=== PATIENT | female | born 1930 | race Caucasian/White ===

== ENCOUNTER → 2016-10-25 | Outpatient (CLI) | payer OTHER, MEDICARE ==
[~2016-10-25] MED LIST: AMLO-110 PO; ASPI1CHW26 PO; CALC750T PO; CETI10TA84 PO; CHOL1000 PO; CITA40TA4 PO; CRAN500C2 PO; CRG3125 PO; LACT10CA3 PO; LEVO75TA5 PO; MULT-188 PO; POLY335019 PO; TOPI25TA99 PO; ZOLP5TAB6 PO
--- NOTE | 2016-10-31 08:59 | MAMMOGRAPHY REPORT ---
BILATERAL DIGITAL SCREENING MAMMOGRAM WITH CAD: 10/25/2016 CLINICAL HISTORY: Routine screening. Patient has no complaints. TECHNIQUE: Bilateral CC and MLO views were obtained. Current study was also evaluated with a Compute r Aided Detection (CAD) system. COMPARISON: Comparison is made to exams dated: 10/25/2015 mammogram, 08/15/2013 mammogram, 08/14/2012 m ammogram, 07/25/2011 mammogram, and 07/21/2010 mammogram - [facility]. BREAST COMPOSITION: The tissue of both breasts is heterogeneously dense, which may obscure small mas ses. FINDINGS: There are moderate vascular calcifications and a few benign rim calcifications in the breas ts. No suspicious mass, architectural distortion or cluster of suspicious microcalcifications is see n. IMPRESSION: ACR BI-RADS CATEGORY 1: NEGATIVE There is no mammographic evidence of malignancy. A 1 year screening mammogram is recommended. The pa tient will receive written notification of the results. Approximately 10% of breast cancers are not detected with mammography. A negative mammographic report should not delay biopsy if a clinically suggestive mass is present. Maria Esther Paris M.D. ay/:10/25/2016 12:45:14 Service Observer Chief: Hayley CAMPBELL(R)(M), [facility] letter sent: Normal 1/2 BI-RADS Code: ACR BI-RADS Category 1: Negative
== END | disposition home or self-care (01) ==
LOC: C.MAMM 11:29
PROVIDERS: ATTEND Family Medicine
DX: Z12.31 Encounter for screening mammogram for malignant neoplasm of breast (principal)

== ENCOUNTER 2017-04-26 19:34 | Inpatient (IN) | payer OTHER, MEDICARE ==
[~2017-04-26] VITALS: Ht 154.9 cm; Wt 44.6 kg
[2017-04-26] MEDS ORDERED: SODIUM CHLORIDE 0.9% 250ML 250 ML IV STA (20:58)
[2017-04-26 21:19] LABS: BASO % 0.5 %; BASO ABS # 0.03 K/uL (0-0.2); EOS % 1.7 %; EOS ABS # 0.11 K/uL (0-0.5); HEMATOCRIT 39.8 % (37-47); IG# 0.02 K/uL (0.00-0.02); LYMPH % 34.1 %; LYMPH ABS # 2.21 K/uL (1.2-3.4); MEAN CELL VOLUME 88.8 fL (80-100); MEAN CORPUSCULAR HEMOGLOBIN 31.3 pg (25-34); MEAN CORPUSCULAR HGB CONC 35.2 g/dl (32-36); MEAN PLATELET VOLUME 8.9 fL (7.4-10.4); MONO % 8.2 %; MONO ABS # 0.53 K/uL (0.11-0.59); NEUT % 55.2 %; NEUT ABS # 3.58 K/uL (1.4-6.5); PLATELET COUNT 196 K/uL (130-400); RED CELL DISTRIBUTION WIDTH SD 42.3 fL (36.4-46.3); WHITE BLOOD COUNT 6.48 K/uL (4.8-10.8)
[2017-04-26 21:36] LABS: BLOOD UREA NITROGEN 26 mg/dl (7-18); CALCIUM 9.4 mg/dl (8.5-10.1); CARBON DIOXIDE 30 mmol/L (21-32); CREATININE 0.94 mg/dl (0.60-1.20); GLUCOSE 94 mg/dl (70-99); POTASSIUM 3.7 mmol/L (3.5-5.1); SODIUM 137 mmol/L (136-145)
--- NOTE | 2017-04-26 22:13 | DIAGNOSTIC IMAGING REPORT ---
HEAD WITHOUT CONTRAST (CT) CLINICAL HISTORY: 86 years-old Female presenting with [place] . TECHNIQUE: Multidetector CT imaging of the head was performed without the use of intravenous contrast. IV contrast: None. A dose lowering technique was used consistent with the principles of ALARA (as low as reasonably achievable). COMPARISON: 02/16/2014. CT DOSE (mGy.cm): The estimated cumulative dose is 537.48 mGy.cm. FINDINGS: Mirror Painter topogram: Unremarkable. Proportional ventricular and sulcal prominence, likely age-related parenchymal volume loss. Periventricular and subcortical white matter hypoattenuation, nonspecific but likely indicative of chronic small vessel ischemic change. No mass effect or midline shift. No hemorrhage or acute territorial infarct. No extra-axial fluid collection. Paranasal sinuses and mastoid air cells clear. Calvarium intact. IMPRESSION: 1. No acute intracranial abnormality. Electronically signed by: Morales Whittaker M.D. 04/26/2017 10:12 PM Dictated Date/Time: 04/26/2017 10:09 PM
[2017-04-26] MEDS ORDERED: ASPIRIN 81 MG CHEW PO STA (23:11)
[2017-04-26] MEDS ORDERED: NITROGLYCERIN 0.4 MG SL PER TAB CHARGE ONE (23:15)
[2017-04-26] MEDS ORDERED: NITROGLYCERIN 2% OINTMENT 30GM TUBE EXT ONE (23:15)
[2017-04-26] MEDS ORDERED: ASPIRIN 324 MG CHEW ONE (23:15)
[2017-04-26] MEDS ORDERED: ISS/10 PO (23:19)
[2017-04-26] MEDS ORDERED: VNTHFA/IN INH (23:19)
[2017-04-26] MEDS ORDERED: LACT10CA3 PO (23:19)
[2017-04-26] MEDS: NITROGLYCERIN 0.4 MG SL PER TAB CHARGE SL PRN ×3 (23:21→23:35)
[2017-04-26] MEDS ORDERED: NITROGLYCERIN 2% OINTMENT 30GM TUBE EXT SCH (23:30)
[2017-04-27] VITALS (9 sets, daily range): BP systolic 153–208; BP diastolic 65–77; PULSE 61–73; TEMP 36.5–36.8; O2SAT 94–96; Ht 154.9 cm; Wt 44.6 kg
[2017-04-27] MEDS ORDERED: LABETALOL HCL IV 5 MG/ML 20ML IV PRN
[2017-04-27 00:48] LABS: ALBUMIN 3.7 gm/dl (3.4-5.0); ALKALINE PHOSPHATASE 44 U/L (45-117); ALT/SGPT 19 U/L (12-78); AST/SGOT 17 U/L (15-37); LIPASE 270 U/L (73-393); TOTAL PROTEIN 7.2 gm/dl (6.4-8.2)
--- NOTE | 2017-04-27 00:56 | EMERGENCY ROOM VISIT NOTE ---
History Report prepared by Elvis: Kirti Johnson Under the Supervision of: Dr. Gaetano Jean-Baptiste D.O. First contact with patient: 20:45 Chief Complaint: HYPERTENSION Stated Complaint: HIGH BLOOD PRESSURE 210/93, LIGHT HEADED, NAUSEA History of Present Illness The patient is a 86 year old female who presents to the Emergency Room with complaints of episode of lightheadedness occurring this afternoon. She states this episode occurred when she got up from laying down. She denies room spinning. No other exacerbating or remitting factors. She states the lightheadedness did not subside quickly. During this episode, she took her blood pressure and it was 210/93. She reports intermittent head pressure beginning a week ago. The patient states her vision is "fuzzier" than her normal baseline. The patient has a history of hypertension and macular degeneration. Pt denies fevers, chest pain, shortness of breath, nausea, vomiting, diarrhea, pain with urination, and melena. Source of History: patient Onset: this afternoon Position: other (generalized) Quality: other (dizziness) Timing: other (episode) Associated Symptoms: + headache, No chest pain, No SOB Review of Systems See HPI for pertinent positives & negatives. A total of 10 systems reviewed and were otherwise negative. Past Medical & Surgical Medical Problems: (1) Carpal tunnel syndrome (2) Coronary artery disease (3) Depression (4) Hypercholesteremia (5) Hypertension (6) Hypertensive urgency (7) Hypothyroid (8) Macular degeneration Surgical Problems: (1) S/P hysterectomy Family History Patient reports no known family medical history. Social History Smoking Status: Never Smoker Alcohol Use: none Drug Use: none Marital Status: Housing Status: lives alone Occupation Status: retired Current/Historical Medications Scheduled Aspirin (Aspirin Adult Low Strengt), 81 MG PO HS Calcium W/ Vitamins D & K (Calcium + D + K), 750 MG PO DAILY Citalopram (Citalopram Hydrobromide), 40 MG PO QPM Cranberry (Vaccinium Macrocarp (Cranberry), 500 MG PO BID Isosorbide Dinitrate (Isordil), 5 MG PO BID Lactobacillus-Inulin (Culturelle), 1 CAP PO DAILY Levothyroxine Sodium (Levothyroxine Sodium), 75 MCG PO DAILY Multiple Vitamins W/ Minerals (Ocuvite), 1 TABS PO DAILY Scheduled PRN Albuterol Hfa (Ventolin Hfa), 2 PUFFS INH Q6H PRN for SOB/Wheezing Zolpidem Tartrate (Zolpidem Tartrate), 5 MG PO HS PRN for Sleep Allergies Coded Allergies: Escitalopram (Verified Allergy, Mild, 0, 04/26/17) Sulfa Drugs (Verified Allergy, Mild, 0, 04/26/17) Metoprolol (Verified Allergy, Unknown, Unknown, 04/26/17) Reported by PT/List Gabapentin (Verified Adverse Reaction, Severe, severe depression, 04/26/17) Desmopressin (Verified Adverse Reaction, Mild, 0, 04/26/17) HTN sinus pain Lisinopril (Verified Adverse Reaction, Mild, COUGH, 04/26/17) Physical Exam Vital Signs Date Time Temp Pulse Resp B/P (MAP) Pulse Ox O2 Delivery O2 Flow Rate FiO2 04/27/17 00:36 65 18 97 04/27/17 00:32 187/87 04/27/17 00:31 60 19 193/87 94 04/27/17 00:26 60 11 207/86 96 04/27/17 00:22 211/110 04/27/17 00:21 61 96 04/27/17 00:16 62 184/84 94 04/27/17 00:11 60 201/85 93 04/27/17 00:06 63 206/92 93 04/27/17 00:01 69 12 201/98 93 04/26/17 23:56 63 13 186/85 94 04/26/17 23:51 65 14 187/94 96 04/26/17 23:46 71 27 204/97 96 04/26/17 23:41 74 24 189/101 97 04/26/17 23:36 168/91 04/26/17 23:35 75 13 04/26/17 23:31 177/89 04/26/17 23:30 68 16 95 04/26/17 23:26 212/88 04/26/17 23:25 74 96 04/26/17 23:21 231/126 04/26/17 23:20 69 21 97 Room Air 04/26/17 23:17 218/106 04/26/17 23:15 60 18 98 04/26/17 23:15 63 22 228/103 98 Room Air 04/26/17 23:13 59 04/26/17 23:10 58 14 99 04/26/17 23:06 228/103 04/26/17 22:27 210/82 04/26/17 22:22 59 20 217/85 98 Room Air 04/26/17 19:56 36.6 84 18 176/68 95 Room Air Physical Exam GENERAL: Sitting up in bed, alert, well appearing, well nourished, no distress, non-toxic EYE EXAM: normal conjunctiva. PERRL and EOM's intact. OROPHARYNX: no exudate, no erythema, lips, buccal mucosa, and tongue normal and mucous membranes are moist NECK: supple, no nuchal rigidity, no adenopathy, non-tender LUNGS: Clear to auscultation. Normal chest wall mechanics HEART: no murmurs, S1 normal and S2 normal ABDOMEN: abdomen soft, non-tender, normo-active bowel sounds, no masses, no rebound or guarding. BACK: Back is symmetrical on inspection and there is no deformity, no midline tenderness, no CVA tenderness. SKIN: no rashes and no bruising UPPER EXTREMITIES: upper extremities are grossly normal. Rapid alternating movements of upper extremities intact. LOWER EXTREMITIES: No pitting edema. NEURO EXAM: Normal sensorium, cranial nerves II-XII intact, normal speech, no weakness of arms, no weakness of legs. No drift. Finger to nose intact. Gross sensation intact. Medical Decision & Procedures ER Provider Diagnostic Interpretation: Radiology results as stated below per my review and the radiologist's interpretation: HEAD WITHOUT CONTRAST (CT) FINDINGS: Care Aid topogram: Unremarkable. Proportional ventricular and sulcal prominence, likely age-related parenchymal volume loss. Periventricular and subcortical white matter hypoattenuation, nonspecific but likely indicative of chronic small vessel ischemic change. No mass effect or midline shift. No hemorrhage or acute territorial infarct. No extra-axial fluid collection. Paranasal sinuses and mastoid air cells clear. Calvarium intact. IMPRESSION: 1. No acute intracranial abnormality. Electronically signed by: Morales Whittaker M.D. Portable Chest One View interpreted by ky: Calcified aortic knob, no infiltrate , no pneumothorax, mild prominence of the right Hilar region. Laboratory Results 04/26/17 21:08 Red Blood Count 4.48, Mean Corpuscular Volume 88.8, Mean Corpuscular Hemoglobin 31.3, Mean Corpuscular Hemoglobin Concent 35.2, Mean Platelet Volume 8.9, Neutrophils (%) (Auto) 55.2, Lymphocytes (%) (Auto) 34.1, Monocytes (%) (Auto) 8.2, Eosinophils (%) (Auto) 1.7, Basophils (%) (Auto) 0.5, Neutrophils # (Auto) 3.58, Lymphocytes # (Auto) 2.21, Monocytes # (Auto) 0.53, Eosinophils # (Auto) 0.11, Basophils # (Auto) 0.03 04/26/17 21:08 Test 04/26/17 21:08 White Blood Count 6.48 K/uL (4.8-10.8) Red Blood Count 4.48 M/uL (4.2-5.4) Hemoglobin 14.0 g/dL (12.0-16.0) Hematocrit 39.8 % (37-47) Mean Corpuscular Volume 88.8 fL (80-100) Mean Corpuscular Hemoglobin 31.3 pg (25-34) Mean Corpuscular Hemoglobin Concent 35.2 g/dl (32-36) Platelet Count 196 K/uL (130-400) Mean Platelet Volume 8.9 fL (7.4-10.4) Neutrophils (%) (Auto) 55.2 % Lymphocytes (%) (Auto) 34.1 % Monocytes (%) (Auto) 8.2 % Eosinophils (%) (Auto) 1.7 % Basophils (%) (Auto) 0.5 % Neutrophils # (Auto) 3.58 K/uL (1.4-6.5) Lymphocytes # (Auto) 2.21 K/uL (1.2-3.4) Monocytes # (Auto) 0.53 K/uL (0.11-0.59) Eosinophils # (Auto) 0.11 K/uL (0-0.5) Basophils # (Auto) 0.03 K/uL (0-0.2) RDW Standard Deviation 42.3 fL (36.4-46.3) RDW Coefficient of Variation 13.0 % (11.5-14.5) Immature Granulocyte % (Auto) 0.3 % Immature Granulocyte # (Auto) 0.02 K/uL (0.00-0.02) Anion Gap 6.0 mmol/L (3-11) Est Creatinine Clear Calc Drug Dose 29.6 ml/min Estimated GFR () 63.7 Estimated GFR (Non- 54.9 BUN/Creatinine Ratio 27.5 (10-20) Calcium Level 9.4 mg/dl (8.5-10.1) Magnesium Level 2.4 mg/dl (1.8-2.4) Total Bilirubin 0.5 mg/dl (0.2-1) Direct Bilirubin 0.1 mg/dl (0-0.2) Aspartate Amino Transf (AST/SGOT) 17 U/L (15-37) Alanine Aminotransferase (ALT/SGPT) 19 U/L (12-78) Alkaline Phosphatase 44 U/L (45-117) Troponin I < 0.015 ng/ml (0-0.045) Total Protein 7.2 gm/dl (6.4-8.2) Albumin 3.7 gm/dl (3.4-5.0) Lipase 270 U/L (73-393) Thyroid Stimulating Hormone (TSH) 2.280 uIu/ml (0.300-4.500) Laboratory results per my review. Medications Administered Medications (Trade) Dose Ordered Sig/Jennifer Route Start Time Stop Time Status Last Admin Dose Admin Sodium Chloride 250 ml @ 999 mls/hr Q16M STAT IV 04/26/17 20:58 04/26/17 21:13 DC 04/26/17 20:58 999 MLS/HR Aspirin (Aspirin Chew) 324 mg NOW STAT PO 04/26/17 23:11 04/26/17 23:13 DC 04/26/17 23:19 324 MG Nitroglycerin (Nitrostat Tab) 0.4 mg Q5M PRN SL 04/26/17 23:15 05/26/17 23:14 04/26/17 23:35 0.4 MG Nitroglycerin (Nitroglycerin 2% Oint) 36 inch STK-MED ONCE EXT 04/26/17 23:15 04/26/17 23:16 DC 04/26/17 23:22 2 INCH ECG Per My Interpretation Indication: other (hypertensive) Rate (beats per minute): 62 Rhythm: sinus rhythm Findings: LBBB, left axis deviation, other (nonspecific ST changes in high lateral and lateral leads, slight elevation in septal and anterior leads) Comparison ECG Date: 02/16/14 Change: no significant change Change: Repeat EKG sinus bradycardia 58 bpm, left axis deviation, LBBB, slight increase in ST elevation in septal leads. Repeat EKG # 2: Sinus rhythm 63 bpm right axis deviation LBBB, no change from earlier ED Course ED COURSE: Vital signs were reviewed and showed hypertensive. The patients medical record was reviewed The above diagnostic studies were performed and reviewed. ED treatments and interventions as stated above. 2048: The patient was evaluated in room C1A. A complete history and physical examination was performed. 2057: Ordered Sodium Chloride 250 ml @ 999 mls/hr IV. 0: The patient is now having chest pain and shortness of breath. Repeat EKG was done. 1: Ordered Aspirin 324 mg PO. 2315: Ordered Nitroglycerin 1.2 mg .ROUTE, Aspirin 324 mg .ROUTE, Nitroglycerin 36 inch EXT, Nitroglycerin 0.4 mg SL. 2330: Ordered Nitroglycerin 2 inch EXT. 2342: I updated the patient on her test results and the treatment plan. Her blood pressure was 200. 2348: I reviewed the patient's case with Dr. Curry. He will evaluate the patient for further management. 0000: Ordered Labetalol HCl 10 mg IV. 0005: Upon reevaluation, the patient is resting comfortably.I discussed my findings with the patient and he understands and agrees with the treatment plan. Based on the patients age, coexisting illnesses, exam and lab findings the decision to treat as an inpatient was made. The patient remained stable while under my care.The patient will be evaluated for further management. Medical Decision Differential Diagnosis includes but is not limited to headache, tension headache , cluster headache, migraine, subarachnoid hemorrhage, meningitis, mass, central venous thrombus, concussion, trauma and epidural/subdural hemorrhage. Patient is an 86-year-old female who presents to ER for feeling lightheaded associated with a head pressure. She has no other complaints. Denied any chest pain or shortness breath. Vitals show a systolic blood pressure 170. EKG showed a left bundle and left axis which was fairly unchanged from previous. CT and blood work was obtained and was unremarkable. Initially troponin was not obtained as she was having no chest pain or shortness breath. Just prior to discharge her blood pressure spiked to 230. She started having chest pain at this time. EKG was obtained and did show slight increase in elevation in the septal leads but this did not meet Scarb[place] criteria. Repeat EKGs were unchanged. Her pain did resolve with nitroglycerin tabs and Nitropaste. Did add on a troponin. Patient was pain-free. Discussed with internal medicine. Patient will be admitted for hypertensive emergency. She was given several tabs nitroglycerin and put on Nitropaste. Systolic blood pressures remained in the 180s to 190s which are significant improvement from the 230s. Medication Reconcilliation Current Medication List: was personally reviewed by me Blood Pressure Screening Patient's blood pressure: Elevated blood pressure Blood pressure disposition: Referred to PCP (referred to the hospitalist) Consults Time Called: [phone] Consulting Physician: Dr. Curry Returned Call: [phone] I reviewed the patient's case with Dr. Curry. He will evaluate the patient for further management. Impression Primary Impression: Hypertensive emergency Additional Impression: Chest pain Scribe Attestation The scribe's documentation has been prepared under my direction and personally reviewed by me in its entirety. I confirm that the note above accurately reflects all work, treatment, procedures, and medical decision making performed by me. Departure Information Dispostion Being Evaluated By Hospitalist Referrals Estrada Johnson D.OAntonietta (PCP) Patient Instructions [facility] Problem Qualifiers Additional Impression: Chest pain Chest pain type: unspecified Qualified Codes: R07.9 - Chest pain, unspecified
[2017-04-27] MEDS ORDERED: CARVEDILOL 3.125 MG TAB PO ONE (01:15)
[2017-04-27] MEDS ORDERED: MoRPHine SULFATE 4 MG/ML 1 ML CARP\\VIAL IV PRN (01:45)
[2017-04-27] MEDS ORDERED: PROCHLORPERAZINE INJ 5 MG in SYRINGE 4 ML IV PRN ×2 (01:45→03:15)
[2017-04-27] MEDS ORDERED: TRAMADOL HCL 50 MG TAB PO PRN (01:45)
[2017-04-27] MEDS ORDERED: OPTIRAY 320 IV PRN (02:15)
[2017-04-27] MEDS ORDERED: NSS + 20MEQ KCL 1000ML 1,000 ML IV SCH ×2 (02:30→04:30)
[2017-04-27] MEDS ORDERED: ISOSORBIDE DINITRATE 10 MG TAB PO ONE (02:51)
[2017-04-27] MEDS ORDERED: NITROGLYCERIN 0.4 MG SL PER TAB CHARGE SL PRN (03:15)
[2017-04-27] MEDS ORDERED: ENOXAPARIN 40 MG/0.4 ML SYR SC SCH (03:15)
[2017-04-27] MEDS ORDERED: ZOLPIDEM TARTRATE 5 MG TAB PO PRN (03:15)
[2017-04-27] MEDS ORDERED: ACETAMINOPHEN 325 MG TAB PO PRN (03:15)
[2017-04-27] MEDS ORDERED: IV FLUIDS COMPLETED PRN (04:15)
[2017-04-27] MEDS: LEVOTHYROXINE 75 MCG TAB PO SCH (05:58)
--- NOTE | 2017-04-27 06:14 | HISTORY & PHYSICAL EXAMINATION ---
DATE OF ADMISSION: 04/27/2017 PRIMARY CARE DOCTOR: Dr. Johnson. CHIEF COMPLAINT: Dizziness. HISTORY OF PRESENT ILLNESS: History obtained from patient and records. Medical history significant for hypertension, COPD as per records, PVD, nonocclusive CAD as per records, chronic left bundle branch block, macular degeneration, mood disorder. Recent confinement in 2013 for hypertensive urgency. Yesterday afternoon, the patient noted dizziness described as lightheadedness, feeling imbalanced. No headache. blurred vision more than usual. Recent denies headache. Does not check blood pressure at home. Patient compliant with meds. Denies dietary indiscretion. Patient brought to the Emergency Room. At the Emergency Room, blood pressure noted to be 228/103. Upon return from CT, the patient noted bilateral subcostal pain, pleuritic, going to her belly and her back with some shortness of breath. No unusual cough symptoms. Patient had some relief of discomfort with aspirin and nitroglycerin. SBP currently 200s. Currently dizziness, imbalance symptoms resolve MEDICAL HISTORY: As above. In January of 2016, the patient's Coreg discontinued by [facility] due to patient's fatigue concerns. No change in fatigue symptoms despite stopping Coreg on followup a month later as per outpatient notes. Amlodipine subsequently discontinued. Nuclear stress test normal in February 2014, EF was 66%. SURGERIES: She has had bunion surgery, cataract surgery, and hysterectomy. HOME MEDICATIONS: Include albuterol, aspirin, calcium plus D, citalopram, isosorbide dinitrate 10 mg twice daily, levothyroxine, MiraLax, and probiotic. ALLERGIES: MACROBID, GABAPENTIN, TOPAMAX, METOPROLOL, SULFA, AND DEVORAH INHIBITORS. FAMILY HISTORY: Rheumatoid arthritis, stroke, lymphoma, and diabetes. PERSONAL AND SOCIAL HISTORY: Nonsmoker. No chronic intake of alcoholic beverages. Retired compensation and benefits administrator. REVIEW OF SYSTEMS: As per HPI, all 10 systems reviewed, all others negative. PHYSICAL EXAMINATION: VITAL SIGNS: Blood pressure was noted to be 228/103, later 207/86, pulse rate 66, RR 17, temperature 36.6, and sats 95 on room air. GENERAL: Noted to be slightly anxious, hyposthenic. No respiratory distress. Uncomfortable. SKIN: Normal color, warm. HEENT: [place] palpebral conjunctivae. No ptosis. , ecchymosis on the left mentum (secondary to recent dental procedure last week). NECK: Supple, nontender. CHEST: Clear to auscultation. No tenderness. HEART: Regular rate and rhythm. Palpable LE pulses. ABDOMEN: Soft, nontender. EXTREMITIES: No edema. No gross deformities. No tenderness NEUROLOGIC: Coherent. No gross focality. LABORATORY DATA: Hemoglobin was noted to be 14, Sodium 137, potassium 3.7, chloride 101, CO2 of 30, BUN 20, creatinine 0.9, glucose 94. LFTs, lipase normal. trop negative CT head, no acute pathology. CT aortic dissection study negative for aortic dissection or PE on initial read. EKG as per my interpretation, rate 65, normal sinus rhythm, LAD, LAFB, IVCD. ASSESSMENT: 1. Chest pain, dizziness likely secondary to hypertensive urgency. 2. Nonocclusive coronary artery disease/PVD as per records. 3. hx Chronic obstructive pulmonary disease, pulmonary status baseline. 4. Mood disorder as per records. 5. Chronic left bundle branch block. PLAN: Observation PCU. Patient agreeable to resuming previous home Coreg Rx TTE cp Cardio consult. RE hypertensive urgency (Patient known to [facility].) DVT prophylaxis, Lovenox subQ. Full code. MTDD
--- NOTE | 2017-04-27 06:46 | DIAGNOSTIC IMAGING REPORT ---
CHEST ONE VIEW PORTABLE CLINICAL HISTORY: cp dyspnea COMPARISON STUDY: 02/09/2014 FINDINGS: The bones soft tissues and hemidiaphragms are normal. The cardiomediastinal silhouette is normal. The lungs are clear. The pulmonary vasculature is normal. IMPRESSION: Negative chest. The above report was generated using voice recognition software. It may contain grammatical, syntax or spelling errors. Electronically signed by: Michael Dickens M.D. 04/27/2017 6:45 AM Dictated Date/Time: 04/27/2017 6:44 AM
--- NOTE | 2017-04-27 06:49 | DIAGNOSTIC IMAGING REPORT ---
CT ANGIO ABD/PELVIS WITH CONTRAST CT DOSE: CLINICAL HISTORY: Chest and abdominal pain TECHNIQUE: CT angiography was performed in a dynamic helical fashion during intravenous administration of 92 cc Optiray 320. MIP imaging was performed. A dose lowering technique was utilized adhering to the principles of ALARA. COMPARISON STUDY: January 2009 FINDINGS: The visualized portions the lung bases reveal no focal pulmonary consolidation. There are no pleural effusions. There is a to small to characterize 3 mm right lobe hepatic hypodensity, likely representing a cyst. There are multiple gallstones present. No splenic masses are visualized. No pancreatic masses are visualized. There is a 5 cm upper pole right renal cyst. No adrenal masses are visualized. There are no transition zones indicate bowel obstruction. The uterus is surgically absent. There are diffuse atheromatous changes present within the abdominal aorta. 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 There is a 50% diameter stenosis of the superior mesenteric artery origin. There is a 75% diameter stenosis of the left renal artery origin. There is no evidence of hemodynamic significant celiac artery stenosis. Inferior mesenteric artery is patent. IMPRESSION: 1. No evidence of bowel obstruction. No evidence of free air 2. 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 No evidence of aortic aneurysm. No evidence of aortic dissection Electronically signed by: Gibran Bone M.D. 04/27/2017 6:48 AM Dictated Date/Time: 04/27/2017 6:41 AM
[2017-04-27] MEDS: POLYETHYLENE (MIRALAX) 17 GM PACK PO SCH (07:36)
[2017-04-27] MEDS: LACTOBACILLUS ACIDOPHILUS (FLORANEX) TAB PO SCH (07:36)
[2017-04-27] MEDS: CEROVITE ADV FORMULA TAB PO SCH (07:36)
--- NOTE | 2017-04-27 08:05 | DIAGNOSTIC IMAGING REPORT ---
CHEST COMBO ANGIO DISSECTION CLINICAL HISTORY: Chest and abdominal pain. COMPARISON STUDY: Chest radiograph April 26, [address] December 08, 2013. TECHNIQUE: Unenhanced and arterial phase imaging of the chest was performed. Injection of 92 cc of Optiray 320 IV was uneventful. Sagittal and coronal reconstructions were viewed as well as maximal intensity projections on an independent 3-D workstation. FINDINGS: The caliber of the thoracic aorta is normal. There is no intramural hematoma or dissection within the thoracic aorta. Heart is mildly enlarged. There is moderate coronary artery calcification. There is moderate atherosclerotic plaque of the thoracic aorta. The proximal great vessels are patent. There is no dissection within visualized portions of these vessels. Central airways are patent. There is right middle lobe bronchiectasis and segmental atelectasis which is improved since exam of December 08, 2013. A few scattered tree-in-bud nodules are noted. There is no pneumothorax or pleural effusion. Bony thorax is unremarkable. Abdomen and pelvis will be reported separately. There are gallstones as well as a right renal cyst. IMPRESSION: 1. No thoracic aortic dissection. 2. No acute intrathoracic findings. 3. Bronchiectasis and segmental atelectasis within the right middle lobe improved since exam of December 08, 2013. 4. A few scattered tree-in-bud nodules within the lungs. No consolidation. Electronically signed by: Diony Kumar M.D. 04/27/2017 8:04 AM Dictated Date/Time: 04/27/2017 7:06 AM
[2017-04-27 08:06] LABS: BASO % 0.4 %; BASO ABS # 0.02 K/uL (0-0.2); HEMATOCRIT 37.7 % (37-47); HEMOGLOBIN 13.2 g/dL (12.0-16.0); IG# 0.01 K/uL (0.00-0.02); LYMPH % 36.9 %; LYMPH ABS # 1.82 K/uL (1.2-3.4); MEAN CELL VOLUME 88.7 fL (80-100); MEAN CORPUSCULAR HEMOGLOBIN 31.1 pg (25-34); MEAN PLATELET VOLUME 8.8 fL (7.4-10.4); MONO % 7.3 %; MONO ABS # 0.36 K/uL (0.11-0.59); NEUT % 53.2 %; NEUT ABS # 2.62 K/uL (1.4-6.5); PLATELET COUNT 191 K/uL (130-400); RED CELL DISTRIBUTION WIDTH CV 13.1 % (11.5-14.5); RED CELL DISTRIBUTION WIDTH SD 42.5 fL (36.4-46.3); WHITE BLOOD COUNT 4.93 K/uL (4.8-10.8)
[2017-04-27 08:14] LABS: PTT PATIENT 26.5 SECONDS (21.0-31.0)
[2017-04-27 08:39] LABS: BLOOD UREA NITROGEN 22 mg/dl (7-18); CARBON DIOXIDE 30 mmol/L (21-32); CREATININE 0.84 mg/dl (0.60-1.20); GLUCOSE 80 mg/dl (70-99); POTASSIUM 3.7 mmol/L (3.5-5.1); SODIUM 139 mmol/L (136-145)
[2017-04-27] MEDS ORDERED: NON-FORMULARY MEDICATION (Cranberry (Vaccinium Macrocarp (Cranberry) 500 MG) PO SCH (09:00)
[2017-04-27] MEDS ORDERED: AMLODIPINE BESYLATE 5 MG TAB PO ONE (11:30)
[2017-04-27] MEDS: ISOSORBIDE DINITRATE 10 MG TAB PO SCH (11:55)
--- NOTE | 2017-04-27 14:54 | CARDIOLOGY CONSULTATION ---
DATE OF CONSULTATION: 04/27/2017 INPATIENT CONSULTATION CONSULTATION REQUESTED BY: Dr. Hayes. REASON FOR CONSULTATION: Hypertensive urgency. HISTORY OF PRESENT ILLNESS: Ms. Ryan is a very pleasant 86-year-old woman who presented to [facility] Emergency Department with a complaint of a few hours of significant lightheadedness, dizziness and elevated blood pressure. 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 Yesterday, she woke up from her normal afternoon nap and upon arising from the couch, she became significantly lightheaded and dizzy. She had to sit down to balance herself. She took her blood pressure at that time and her systolic was over 200. She took an extra dose of her Isordil with no improvement of her blood pressure. She remained lightheaded and after several hours, she came into the Emergency Department. Upon presentation, she was again found to be severely hypertensive with initial blood pressure 228/103. CT of her chest and abdomen were performed. She was given sublingual nitroglycerin with some relief, and she was restarted on her previous dose of Coreg. She states since admission, she has been feeling okay, her lightheadedness is improved and she is just now feeling tired. She did have a slight episode of chest discomfort in the Emergency Department, but again that resolved after receiving the Coreg. PAST SURGICAL HISTORY: 1. Cardiac catheterization in 2008, showing nonobstructive disease. 2. Hysterectomy. 3. Bunionectomy. 4. Tonsillectomy as a child. 5. Carpal tunnel surgery. 6. Cataract surgery. MEDICAL ILLNESSES: 1. Nonobstructive coronary artery disease. 2. Hypertension. 3. Hyperlipidemia. 4. Chronic left bundle branch block. 5. Hypothyroidism. 6. GERD. 7. Schatzki ring. 8. Stage III chronic kidney disease. FAMILY HISTORY: Noncontributory. SOCIAL HISTORY: Denies any alcohol, tobacco or recreational drug use. She is . She has 2 children. She is retired [employer] administrator. Again, she remains active, exercising on a regular basis. REVIEW OF SYSTEMS: As per HPI, all other review of systems reviewed and negative at this time. ALLERGIES: 1. MACROBID. 2. GABAPENTIN. 3. TOPIRAMATE. 4. ESCITALOPRAM. 5. METOPROLOL SUCCINATE. 6. SULFA. 7. DEVORAH INHIBITORS CAUSED A COUGH. MEDICATIONS AN OUTPATIENT: 1. Aspirin 81 mg daily. 2. Isordil 5 mg b.i.d. 3. Levoxyl daily. 4. Celexa daily. PHYSICAL EXAMINATION: VITALS: Temperature 36.6, pulse 67, respiratory rate 12, and blood pressure 153/67. GENERAL: Awake, alert, oriented x3 in no acute distress. HEENT: Normocephalic, atraumatic. Pupils equal, round react to light and accommodation. Extraocular muscles intact. Anicteric sclerae. Moist mucous membranes. NECK: No JVD, no bruit. CARDIOVASCULAR: Regular. Positive S4. Normal S1 and S2. No S3. No murmurs or rubs. PULMONARY: Clear to auscultation bilaterally. No rales, rhonchi, or wheezing. ABDOMEN: Bowel sounds x4, soft. No rebound, guarding, tenderness. No organomegaly. EXTREMITIES: No clubbing, cyanosis or edema. +2 pedal pulses bilaterally. SKIN: Warm and dry. 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 Head CT showed no acute intracranial abnormalities. A 12-lead EKG performed in the Emergency Department independently reviewed at this time shows normal sinus rhythm at 62 beats per minute with a left bundle branch block, no change compared to previous studies. IMPRESSION: 1. Hypertensive urgency. 2. Renal artery stenosis. RECOMMENDATIONS: It was my pleasure to see Mrs. Ryan in consultation today. From a cardiac standpoint, I believe her symptoms are easily explained by her uncontrolled hypertension. So, given her recent finding of some renal artery stenosis, I believe most prudent course of action will be to start her on amlodipine 5 mg x1 now and see her blood pressure responds. She has already been restarted on her previous dose of Coreg, which I agree with and at this point we will follow her blood pressure and once it is controlled, likely discharge her to home with close followup as an outpatient. She will also have a 2D echocardiogram at this time to evaluate for any new wall motion abnormalities.
[2017-04-27] MEDS: HEPARIN SOD 5000 UNIT/0.5 ML CARP SQ SCH ×2 (15:02→21:13)
--- NOTE | 2017-04-27 16:02 | ECHOCARDIOGRAM REPORT ---
*NOTICE TO RECEIVING LIBERTARIAN AGENCY This information is strictly Confidential and protected under [place] law. [place] law prohibits you from making any further disclosure of this information unless further disclosure is expressly permitted by the written consent of the person to whom it pertains or is authorized by law. A general authorization for the release of medical or other information is not sufficient for this purpose. Hospital accepts no responsibility if the information is made available to any other person, INCLUDING THE PATIENT. Interpretation Summary * Name: ANNELISE FREGOSO Study Date: 04/27/2017 12:57 PM BP: 154/74 mmHg * Patient Location: [facility]\S\N282\S\2 HR: 61 * : 1930 (M/d/yyyy) Gender: Female Height: 60 in * Age: 86 yrs Ethnicity: [place] Weight: 96 lb * Ordering Physician: Marty Hayes * Referring Physician: Self, Referred * Performed By: Rufina Coombs RDCS * * Reason For Study: Chest Pain * BSA: 1.4 m2 * -- Conclusions -- * Normal LV chamber size with moderate concentric LVH, sigmoid appearing septum. * Normal LV systolic function, EF 55-60%. * No segmental left ventricular wall motion abnormalities are noted. * Grade I diastolic dysfunction. * Aortic valve sclerosis mild, without significant aortic valvular stenosis. Procedure Details * A complete two-dimensional transthoracic echocardiogram was performed (2D, M-mode, Doppler and color flow Doppler). Left Ventricle * The left ventricle is normal in size. * There is moderate concentric left ventricular hypertrophy. * The basal septum is thickened and angulated consistent with sigmoid septum. * Ejection Fraction = 55-60%. * Left ventricular systolic function is normal. * No segmental left ventricular wall motion abnormalities are noted. * The left ventricular wall motion is normal. Right Ventricle * The right ventricular cavity size is normal (basal dimension <4.2 cm in right ventricular apical 4-chamber view). * The right ventricular systolic function is normal as assessed by tricuspid annular plane systolic excursion (TAPSE) (normal >1.5 cm). Atria * The left atrial size is normal. * Right atrial size is normal. * No ASD detected; PFO is not assessed. Mitral Valve * The mitral valve is normal in structure and function. Tricuspid Valve * The tricuspid valve is normal in structure and function. Aortic Valve * The aortic valve is trileaflet. * Aortic valve sclerosis mild, without significant aortic valvular stenosis. * There is no significant aortic regurgitation. Pulmonic Valve * The pulmonary valve is not well seen, but the Doppler examination is normal without significant regurgitation or stenosis. Great Vessels * The aortic root is normal size. Pericardium/Pleural * There is no pericardial effusion. Left Ventricular Diastolic Function * Grade I diastolic dysfunction, (abnormal relaxation pattern). MMode 2D Measurements and Calculations IVSd 1.1 cm IVSs 1.3 cm LVIDd 3.0 cm LVIDs 1.8 cm LVPWd 1.2 cm LVPWs 2.1 cm IVS/LVPW 0.97 FS 39.3 % EDV(Teich) 34.2 ml ESV(Teich) 9.8 ml EF(Teich) 71.4 % EDV(cubed) 26.2 ml ESV(cubed) 5.9 ml EF(cubed) 77.6 % % IVS thick 9.3 % % LVPW thick 73.9 % LV mass(C)d 102.9 grams LV mass(C)dI 75.3 grams/m\S\2 LV mass(C)s 107.2 grams LV mass(C)sI 78.5 grams/m\S\2 SV(Teich) 24.4 ml SI(Teich) 17.8 ml/m\S\2 SV(cubed) 20.3 ml SI(cubed) 14.9 ml/m\S\2 Ao root diam 2.6 cm Ao root area 5.2 cm\S\2 ACS 1.6 cm LA dimension 2.6 cm LA/Ao 1.0 LVAd ap4 21.5 cm\S\2 LVLd ap4 7.5 cm EDV(MOD-sp4) 53.6 ml EDV(sp4-el) 52.5 ml LVAs ap4 12.9 cm\S\2 LVLs ap4 6.6 cm ESV(MOD-sp4) 22.1 ml ESV(sp4-el) 21.6 ml EF(MOD-sp4) 58.7 % EF(sp4-el) 58.8 % LVAd ap2 21.7 cm\S\2 LVLd ap2 7.4 cm EDV(MOD-sp2) 56.0 ml EDV(sp2-el) 53.8 ml LVAs ap2 11.9 cm\S\2 LVLs ap2 6.2 cm ESV(MOD-sp2) 22.2 ml ESV(sp2-el) 19.3 ml EF(MOD-sp2) 60.4 % EF(sp2-el) 64.1 % LVLd %diff -0.42 % EDV(MOD-bp) 54.8 ml LVLs %diff -5.21 % ESV(MOD-bp) 22.6 ml EF(MOD-bp) 58.7 % SV(MOD-sp4) 31.4 ml SI(MOD-sp4) 23.0 ml/m\S\2 SV(MOD-sp2) 33.8 ml SI(MOD-sp2) 24.8 ml/m\S\2 SV(MOD-bp) 32.2 ml SI(MOD-bp) 23.5 ml/m\S\2 SV(sp4-el) 30.9 ml SI(sp4-el) 22.6 ml/m\S\2 SV(sp2-el) 34.5 ml SI(sp2-el) 25.2 ml/m\S\2 Doppler Measurements and Calculations MV E max tayler 41.5 cm/sec MV A max tayler 92.7 cm/sec MV E/A 0.45 MV dec time 0.36 sec Ao V2 max 128.6 cm/sec Ao max PG 6.6 mmHg Ao max PG (full) 2.0 mmHg LV V1 max PG 4.6 mmHg LV V1 max 107.3 cm/sec PA V2 max 101.8 cm/sec PA max PG 4.1 mmHg PI max tayler 140.6 cm/sec PI max PG 7.9 mmHg PI dec slope 149.5 cm/sec\S\2 PI P1/2t 275.5 msec
[2017-04-27] MEDS ORDERED: MoRPHine SULFATE 2 MG/ML CARP IV PRN (18:15)
--- NOTE | 2017-04-27 18:15 | Progress Note ---
Subjective Date of Service: Apr 27, 2017. Subjective Pt evaluation today including: conversation w/ patient, physical exam, lab review, review of studies, review of inpatient medication list Saw/examined the patient in room 282 no problems/issues to note currently was having headaches and chest pain earlier, but not anymore Problem List Medical Problems: (1) Chest pain Status: Acute (2) Hypertensive emergency Status: Acute Review of Systems Constitutional: No fever, No chills Respiratory: No shortness of breath Cardiac: No chest pain Medications Current Inpatient Medications Medications (Trade) Dose Ordered Sig/Jennifer Route Start Time Stop Time Status Last Admin Dose Admin Carvedilol (Coreg Tab) 3.125 mg BID PO 04/27/17 21:00 05/27/17 20:59 Tramadol HCl (Ultram Tab) 25 mg Q6H PRN PO 04/27/17 01:45 05/27/17 01:44 Morphine Sulfate (MoRPHine SULFATE INJ) 4 mg Q3H PRN IV 04/27/17 01:45 05/11/17 01:44 Prochlorperazine Edisylate 5 mg/ Syringe 5 ml @ 5 mls/min Q6H PRN IV 04/27/17 01:45 05/27/17 01:44 Isosorbide Dinitrate (Isordil Tab) 10 mg BID@0700,1200 PO 04/27/17 12:00 05/27/17 11:59 04/27/17 11:55 10 MG Ioversol (Optiray 320) 100 ml UD PRN IV 04/27/17 02:15 05/01/17 02:14 Potassium Chloride/Sodium Chloride 1,000 ml @ 50 mls/hr Q20H IV 04/27/17 04:30 04/28/17 00:29 04/27/17 05:16 50 MLS/HR Acetaminophen (Tylenol Tab) 650 mg Q4H PRN PO 04/27/17 03:15 05/27/17 03:14 Nitroglycerin (Nitrostat Tab) 0.4 mg UD PRN SL 04/27/17 03:15 05/27/17 03:14 Aspirin (Ecotrin Tab) 81 mg HS PO 04/27/17 21:00 05/27/17 20:59 Citalopram Hydrobromide (celeXA TAB) 40 mg QPM PO 04/27/17 21:00 05/27/17 20:59 Levothyroxine Sodium (Synthroid Tab) 75 mcg DAILYBB PO 04/27/17 06:30 05/27/17 06:29 04/27/17 05:58 75 MCG Multivitamins/ Minerals (Multivitamin W/ Minerals Tab) 1 tab DAILY PO 04/27/17 09:00 05/27/17 08:59 04/27/17 07:36 1 TAB Zolpidem Tartrate (Ambien Tab) 5 mg HS PRN PO 04/27/17 03:15 05/27/17 03:14 Lactobacillus Acidophilus (Floranex Tab) 4 tab DAILY PO 04/27/17 09:00 05/27/17 08:59 04/27/17 07:36 4 TAB Miscellaneous (Iv Fluids Completed) 1 ea PRN PRN N/A 04/27/17 04:15 04/27/18 04:14 Polyethylene (Miralax Powder Packet) 17 gm DAILY PO 04/27/17 09:00 05/27/17 08:59 04/27/17 07:36 17 GM Heparin Sodium (Porcine) (Heparin Sq 5000 Unit/0.5ml) 5,000 unit Q8 SQ 04/27/17 14:00 05/27/17 13:59 04/27/17 15:02 5,000 UNIT Objective Vital Signs Date Time Temp Pulse Resp B/P (MAP) Pulse Ox O2 Delivery O2 Flow Rate FiO2 04/27/17 16:00 Room Air 04/27/17 15:04 36.5 61 18 154/74 (100) 96 Room Air 04/27/17 14:30 156/69 (98) 04/27/17 12:00 Room Air 04/27/17 11:33 36.6 67 17 208/77 (120) 96 Room Air 203/76 (118) 04/27/17 08:54 73 04/27/17 08:00 Room Air 04/27/17 07:22 36.6 67 19 153/67 (95) 94 Room Air 04/27/17 05:08 36.6 66 16 169/69 95 Room Air 04/27/17 05:06 36.6 66 16 169/69 04/27/17 03:22 149/75 04/27/17 03:21 67 16 95 3/2/18 03:18 70 18 03:16 128/68 18 03:11 69 14 95 04/27/17 03:01 222/102 04/27/17 02:46 199/86 04/27/17 02:41 66 13 94 04/27/17 02:36 59 10 94 04/27/17 02:31 203/88 04/27/17 02:22 196/83 04/27/17 02:21 62 94 04/27/17 02:06 64 18 95 04/27/17 02:05 233/90 04/27/17 01:31 218/105 04/27/17 01:26 60 17 94 04/27/17 01:16 201/87 04/27/17 01:11 61 12 95 04/27/17 01:01 196/92 04/27/17 00:56 60 17 92 04/27/17 00:46 209/84 04/27/17 00:41 63 13 94 04/27/17 00:36 65 18 97 04/27/17 00:32 187/87 04/27/17 00:31 60 19 193/87 94 04/27/17 00:26 60 11 207/86 96 04/27/17 00:22 211/110 04/27/17 00:21 61 96 04/27/17 00:16 62 184/84 94 04/27/17 00:11 60 201/85 93 04/27/17 00:06 63 206/92 93 04/27/17 00:01 69 12 201/98 93 04/26/17 23:56 63 13 186/85 94 04/26/17 23:51 65 14 187/94 96 04/26/17 23:46 71 27 204/97 96 04/26/17 23:41 74 24 189/101 97 04/26/17 23:36 168/91 04/26/17 23:35 75 13 04/26/17 23:31 177/89 04/26/17 23:30 68 16 95 04/26/17 23:26 212/88 04/26/17 23:25 74 96 04/26/17 23:21 231/126 04/26/17 23:20 69 21 97 Room Air 04/26/17 23:17 218/106 3/1/18 23:15 60 18 98 04/26/17 23:15 63 22 228/103 98 Room Air 04/26/17 23:13 59 04/26/17 23:10 58 14 99 04/26/17 23:06 228/103 04/26/17 22:27 210/82 04/26/17 22:22 59 20 217/85 98 Room Air 04/26/17 19:56 36.6 84 18 176/68 95 Room Air Physical Exam General Appearance: no apparent distress ENT: + pertinent finding (bruising on the left side of the chin) Respiratory/Chest: lungs clear, normal breath sounds, no respiratory distress, no accessory muscle use Cardiovascular: regular rate, rhythm, no edema, no murmur Extremities: normal inspection, no pedal edema Laboratory Results Last 24 Hours Test 04/26/17 21:08 04/27/17 01:40 04/27/17 07:45 White Blood Count 6.48 K/uL 4.93 K/uL Red Blood Count 4.48 M/uL 4.25 M/uL Hemoglobin 14.0 g/dL 13.2 g/dL Hematocrit 39.8 % 37.7 % Mean Corpuscular Volume 88.8 fL 88.7 fL Mean Corpuscular Hemoglobin 31.3 pg 31.1 pg Mean Corpuscular Hemoglobin Concent 35.2 g/dl 35.0 g/dl Platelet Count 196 K/uL 191 K/uL Mean Platelet Volume 8.9 fL 8.8 fL Neutrophils (%) (Auto) 55.2 % 53.2 % Lymphocytes (%) (Auto) 34.1 % 36.9 % Monocytes (%) (Auto) 8.2 % 7.3 % Eosinophils (%) (Auto) 1.7 % 2.0 % Basophils (%) (Auto) 0.5 % 0.4 % Neutrophils # (Auto) 3.58 K/uL 2.62 K/uL Lymphocytes # (Auto) 2.21 K/uL 1.82 K/uL Monocytes # (Auto) 0.53 K/uL 0.36 K/uL Eosinophils # (Auto) 0.11 K/uL 0.10 K/uL Basophils # (Auto) 0.03 K/uL 0.02 K/uL RDW Standard Deviation 42.3 fL 42.5 fL RDW Coefficient of Variation 13.0 % 13.1 % Immature Granulocyte % (Auto) 0.3 % 0.2 % Immature Granulocyte # (Auto) 0.02 K/uL 0.01 K/uL Activated Partial Thromboplast Time 28.0 SECONDS 26.5 SECONDS Partial Thromboplastin Ratio 1.1 1.0 Sodium Level 137 mmol/L 139 mmol/L Potassium Level 3.7 mmol/L 3.7 mmol/L Chloride Level 101 mmol/L 103 mmol/L Carbon Dioxide Level 30 mmol/L 30 mmol/L Anion Gap 6.0 mmol/L 6.0 mmol/L Blood Urea Nitrogen 26 mg/dl 22 mg/dl Creatinine 0.94 mg/dl 0.84 mg/dl Est Creatinine Clear Calc Drug Dose 29.6 ml/min 32.6 ml/min Estimated GFR () 63.7 72.9 Estimated GFR (Non- 54.9 62.9 BUN/Creatinine Ratio 27.5 26.3 Random Glucose 94 mg/dl 80 mg/dl Calcium Level 9.4 mg/dl 9.0 mg/dl Magnesium Level 2.4 mg/dl Total Bilirubin 0.5 mg/dl Direct Bilirubin 0.1 mg/dl Aspartate Amino Transf (AST/SGOT) 17 U/L Alanine Aminotransferase (ALT/SGPT) 19 U/L Alkaline Phosphatase 44 U/L Troponin I < 0.015 ng/ml < 0.015 ng/ml Total Protein 7.2 gm/dl Albumin 3.7 gm/dl Lipase 270 U/L Thyroid Stimulating Hormone (TSH) 2.280 uIu/ml Urine Color YELLOW Urine Appearance CLEAR Urine pH 6.0 Urine Specific [place] 1.010 Urine Protein NEG Urine Glucose (UA) NEG Urine Ketones NEG Urine Occult Blood NEG Urine Nitrite NEG Urine Bilirubin NEG Urine Urobilinogen NEG Urine Leukocyte Esterase SMALL Urine WBC (Auto) 10-30 /hpf Urine RBC (Auto) 0-4 /hpf Urine Hyaline Casts (Auto) 0 /lpf Urine Epithelial Cells (Auto) 20-30 /lpf Urine Bacteria (Auto) 1+ Prothrombin Time 10.7 SECONDS Prothromb Time International Ratio 1.0 Assessment and Plan This is an 86 year old female with a PMH of COPD, depression/anxiety, hypothyroidism, HTN, HLD, CKD stage 3 - presents with headache, chest pain and subsequently found to have hypertensive urgency Hypertensive Urgency secondary to Renal Artery Stenosis patient presented with BP >200/100 restarted on Coreg, which was recommended last year now started on Amlodipine echo with moderate LV hypertrophy once BP is controlled, will d/c home head CT and CT for dissection, CT angio of abd/pelvis are all negative besides renal artery stenosis COPD continue home medications Depression/Anxiety continue home medications DVT ppx subq heparin FULL CODE
[2017-04-27] MEDS ORDERED: CARVEDILOL 3.125 MG TAB PO SCH (21:00)
[2017-04-27] MEDS: ASPIRIN 81 MG ECTAB PO SCH (21:09)
[2017-04-27] MEDS: CITALOPRAM 40 MG TAB PO SCH (21:09)
[2017-04-28] VITALS (11 sets, daily range): BP systolic 117–183; BP diastolic 56–84; PULSE 61–73; TEMP 36.5–37; O2SAT 92–97
[2017-04-28] MEDS ORDERED: AMLODIPINE BESYLATE 5 MG TAB PO ONE (00:26)
[2017-04-28] MEDS ORDERED: CARVEDILOL 3.125 MG TAB PO ONE (04:57)
[2017-04-28] MEDS ORDERED: POTASSIUM CHLORIDE 10 MEQ TABCR PO STA (05:30)
[2017-04-28] MEDS: LEVOTHYROXINE 75 MCG TAB PO SCH (06:02)
[2017-04-28] MEDS: HEPARIN SOD 5000 UNIT/0.5 ML CARP SQ SCH ×3 (06:04→20:58)
[2017-04-28 06:32] LABS: CALCIUM 8.5 mg/dl (8.5-10.1); CREATININE 0.87 mg/dl (0.60-1.20)
[2017-04-28] MEDS: ISOSORBIDE DINITRATE 10 MG TAB PO SCH ×3 (06:35→12:15)
[2017-04-28] MEDS: POLYETHYLENE (MIRALAX) 17 GM PACK PO SCH (08:36)
[2017-04-28] MEDS: CEROVITE ADV FORMULA TAB PO SCH (08:36)
[2017-04-28] MEDS: LACTOBACILLUS ACIDOPHILUS (FLORANEX) TAB PO SCH (08:36)
--- NOTE | 2017-04-28 10:06 | Cardiology Follow-Up ---
Subjective Subjective Date of Service: Apr 28, 2017. Pt evaluation today including: conversation w/ patient, physical exam, chart review, lab review, review of studies, review of inpatient medication list Additional Details: Subjective: This is an 86-year-old female who lives with her son who works 12 hour shifts and recently has been on the rn shift mgr. 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 She does have decreased visual acuity and requires audiobooks. She was admitted with weakness and dizziness. Upon arrival to the emergency department she was noted to be hypertensive. She has been followed for many years by Dr. Walden with a history of minor nonobstructive coronary artery disease and hypertension. Since admission, she has been started on Coreg and amlodipine. Her blood pressure is far better controlled this morning. She has a chronic left bundle branch block. I reviewed her telemetry she has had no significant arrhythmias or bradycardic events since admission. She denies chest pain or progressive shortness of breath. She is very anxious and uncomfortable about returning home. Problem List Medical Problems: (1) Chest pain Status: Acute (2) Hypertensive emergency Status: Acute Current Inpatient Medications Medications (Trade) Dose Ordered Sig/Jennifer Route Start Time Stop Time Status Last Admin Dose Admin Tramadol HCl (Ultram Tab) 25 mg Q6H PRN PO 04/27/17 01:45 05/27/17 01:44 Prochlorperazine Edisylate 5 mg/ Syringe 5 ml @ 5 mls/min Q6H PRN IV 04/27/17 01:45 05/27/17 01:44 Isosorbide Dinitrate (Isordil Tab) 10 mg BID@0700,1200 PO 04/27/17 12:00 05/27/17 11:59 04/28/17 08:36 10 MG Ioversol (Optiray 320) 100 ml UD PRN IV 04/27/17 02:15 05/01/17 02:14 Acetaminophen (Tylenol Tab) 650 mg Q4H PRN PO 04/27/17 03:15 05/27/17 03:14 Nitroglycerin (Nitrostat Tab) 0.4 mg UD PRN SL 04/27/17 03:15 05/27/17 03:14 Aspirin (Ecotrin Tab) 81 mg HS PO 04/27/17 21:00 05/27/17 20:59 04/27/17 21:09 81 MG Citalopram Hydrobromide (celeXA TAB) 40 mg QPM PO 04/27/17 21:00 05/27/17 20:59 04/27/17 21:09 40 MG Levothyroxine Sodium (Synthroid Tab) 75 mcg DAILYBB PO 04/27/17 06:30 05/27/17 06:29 04/28/17 06:02 75 MCG Multivitamins/ Minerals (Multivitamin W/ Minerals Tab) 1 tab DAILY PO 04/27/17 09:00 05/27/17 08:59 04/28/17 08:36 1 TAB Zolpidem Tartrate (Ambien Tab) 5 mg HS PRN PO 04/27/17 03:15 05/27/17 03:14 Lactobacillus Acidophilus (Floranex Tab) 4 tab DAILY PO 04/27/17 09:00 05/27/17 08:59 04/28/17 08:36 4 TAB Miscellaneous (Iv Fluids Completed) 1 ea PRN PRN N/A 04/27/17 04:15 04/27/18 04:14 04/28/17 01:38 1 EA Polyethylene (Miralax Powder Packet) 17 gm DAILY PO 04/27/17 09:00 05/27/17 08:59 04/28/17 08:36 17 GM Heparin Sodium (Porcine) (Heparin Sq 5000 Unit/0.5ml) 5,000 unit Q8 SQ 04/27/17 14:00 05/27/17 13:59 04/28/17 06:04 5,000 UNIT Morphine Sulfate (MoRPHine SULFATE INJ) 2 mg Q3H PRN IV 04/27/17 18:15 05/11/17 01:44 Amlodipine Besylate (Norvasc Tab) 10 mg QAM PO 04/29/17 09:00 05/29/17 08:59 Carvedilol (Coreg Tab) 3.125 mg BID PO 04/28/17 21:00 05/27/17 20:59 Review of Systems Constitutional: No fever, No chills Respiratory: No shortness of breath Cardiac: No chest pain Objective Vital Signs Last Vital Signs Documentation Date Time Temp Pulse Resp B/P (MAP) Pulse Ox O2 Delivery O2 Flow Rate FiO2 04/28/17 08:48 73 124/70 (88) 04/28/17 08:00 Room Air 04/28/17 07:39 36.6 18 96 Physical Exam: General Appearance: no apparent distress ENT: + pertinent finding (bruising on the left side of the chin) Respiratory/Chest: lungs clear, normal breath sounds, no respiratory distress, no accessory muscle use Cardiovascular: regular rate, rhythm, no edema, no murmur Extremities: normal inspection, no pedal edema Comments: Last 24 Hours Test 04/28/17 06:02 Sodium Level 138 mmol/L Potassium Level 4.0 mmol/L Chloride Level 104 mmol/L Carbon Dioxide Level 29 mmol/L Anion Gap 5.0 mmol/L Blood Urea Nitrogen 17 mg/dl Creatinine 0.87 mg/dl Est Creatinine Clear Calc Drug Dose 31.5 ml/min Estimated GFR () 69.9 Estimated GFR (Non- 60.3 BUN/Creatinine Ratio 19.4 Random Glucose 85 mg/dl Calcium Level 8.5 mg/dl Magnesium Level 2.4 mg/dl Assessment and Plan Impression: 1. Hypertensive urgency 2. Chronic stable coronary artery disease Recommendations: The patient's hypertension is better controlled today. Her cardiac markers are negative. At this point I would recommend no additional cardiac testing. If her hypertension remains controlled, then I believe the patient can be discharged home to outpatient follow-up. Cardiology will sign off this case however, if necessary we would be happy to see the patient again to reevaluate her.
--- NOTE | 2017-04-28 13:19 | Progress Note ---
Subjective Date of Service: Apr 28, 2017. Subjective Pt evaluation today including: conversation w/ patient, physical exam, lab review, review of studies, review of inpatient medication list Saw/examined the patient in room 282 patient is doing well; denies headaches, denies chest pain states she is worried about going home because her blood pressure has not been controlled for 24 hours She lives alone and cares for herself. Problem List Medical Problems: (1) Chest pain Status: Acute (2) Hypertensive emergency Status: Acute Review of Systems Constitutional: No fever, No chills Respiratory: No cough, No sputum, No shortness of breath Cardiac: No chest pain, No edema, No palpitations Neurologic: No weakness, No numbness/tingling, No vertigo, No balance problems Medications Current Inpatient Medications Medications (Trade) Dose Ordered Sig/Jennifer Route Start Time Stop Time Status Last Admin Dose Admin Tramadol HCl (Ultram Tab) 25 mg Q6H PRN PO 04/27/17 01:45 05/27/17 01:44 Prochlorperazine Edisylate 5 mg/ Syringe 5 ml @ 5 mls/min Q6H PRN IV 04/27/17 01:45 05/27/17 01:44 Isosorbide Dinitrate (Isordil Tab) 10 mg BID@0700,1200 PO 04/27/17 12:00 05/27/17 11:59 04/28/17 08:36 10 MG Ioversol (Optiray 320) 100 ml UD PRN IV 04/27/17 02:15 05/01/17 02:14 Acetaminophen (Tylenol Tab) 650 mg Q4H PRN PO 04/27/17 03:15 05/27/17 03:14 Nitroglycerin (Nitrostat Tab) 0.4 mg UD PRN SL 04/27/17 03:15 05/27/17 03:14 Aspirin (Ecotrin Tab) 81 mg HS PO 04/27/17 21:00 05/27/17 20:59 04/27/17 21:09 81 MG Citalopram Hydrobromide (celeXA TAB) 40 mg QPM PO 04/27/17 21:00 05/27/17 20:59 04/27/17 21:09 40 MG Levothyroxine Sodium (Synthroid Tab) 75 mcg DAILYBB PO 04/27/17 06:30 4/1/18 06:29 04/28/17 06:02 75 MCG Multivitamins/ Minerals (Multivitamin W/ Minerals Tab) 1 tab DAILY PO 04/27/17 09:00 05/27/17 08:59 04/28/17 08:36 1 TAB Zolpidem Tartrate (Ambien Tab) 5 mg HS PRN PO 04/27/17 03:15 05/27/17 03:14 Lactobacillus Acidophilus (Floranex Tab) 4 tab DAILY PO 04/27/17 09:00 05/27/17 08:59 04/28/17 08:36 4 TAB Miscellaneous (Iv Fluids Completed) 1 ea PRN PRN N/A 04/27/17 04:15 04/27/18 04:14 04/28/17 01:38 1 EA Polyethylene (Miralax Powder Packet) 17 gm DAILY PO 04/27/17 09:00 05/27/17 08:59 04/28/17 08:36 17 GM Heparin Sodium (Porcine) (Heparin Sq 5000 Unit/0.5ml) 5,000 unit Q8 SQ 04/27/17 14:00 05/27/17 13:59 04/28/17 06:04 5,000 UNIT Morphine Sulfate (MoRPHine SULFATE INJ) 2 mg Q3H PRN IV 04/27/17 18:15 05/11/17 01:44 Amlodipine Besylate (Norvasc Tab) 10 mg QAM PO 04/29/17 09:00 05/29/17 08:59 Carvedilol (Coreg Tab) 3.125 mg BID PO 04/28/17 21:00 05/27/17 20:59 Objective Vital Signs Date Time Temp Pulse Resp B/P (MAP) Pulse Ox O2 Delivery O2 Flow Rate FiO2 04/28/17 12:00 Room Air 04/28/17 11:39 36.8 69 18 125/67 (86) 97 Room Air 04/28/17 08:48 73 124/70 (88) 04/28/17 08:00 Room Air 04/28/17 07:39 36.6 70 18 117/56 (76) 96 Room Air 04/28/17 06:33 36.7 63 18 145/66 (92) 96 Room Air 04/28/17 04:54 71 179/74 (109) 04/28/17 04:00 Room Air 04/28/17 03:00 36.5 67 20 180/66 (104) 95 Room Air 04/28/17 02:32 61 157/70 (99) 04/28/17 01:26 66 178/73 (108) 04/28/17 00:00 Room Air 04/27/17 23:50 36.8 69 20 183/65 (104) 95 Room Air 04/27/17 20:00 Room Air 04/27/17 19:55 36.8 68 17 171/68 (102) 96 Room Air 64 04/27/17 16:00 Room Air 04/27/17 15:04 36.5 61 18 154/74 (100) 96 Room Air 04/27/17 14:30 156/69 (98) Physical Exam General Appearance: no apparent distress, + thin Respiratory/Chest: no respiratory distress, no accessory muscle use Cardiovascular: regular rate, rhythm Extremities: normal inspection, no pedal edema Neurologic/Psychiatric: no motor/sensory deficits, alert, normal mood/affect Laboratory Results Last 24 Hours Test 04/28/17 06:02 Sodium Level 138 mmol/L Potassium Level 4.0 mmol/L Chloride Level 104 mmol/L Carbon Dioxide Level 29 mmol/L Anion Gap 5.0 mmol/L Blood Urea Nitrogen 17 mg/dl Creatinine 0.87 mg/dl Est Creatinine Clear Calc Drug Dose 31.5 ml/min Estimated GFR () 69.9 Estimated GFR (Non- 60.3 BUN/Creatinine Ratio 19.4 Random Glucose 85 mg/dl Calcium Level 8.5 mg/dl Magnesium Level 2.4 mg/dl Assessment and Plan This is an 86 year old female with a PMH of COPD, depression/anxiety, hypothyroidism, HTN, HLD, CKD stage 3 - presents with headache, chest pain and subsequently found to have hypertensive urgency Hypertensive Urgency secondary to Renal Artery Stenosis 04/28 appreciate cardiology input at this point, will continue Coreg and Amlodipine, which is controlled her blood pressure if asymptomatic, can d/c on 04/29 04/27 patient presented with BP >200/100 restarted on Coreg, which was recommended last year now started on Amlodipine echo with moderate LV hypertrophy once BP is controlled, will d/c home head CT and CT for dissection, CT angio of abd/pelvis are all negative besides renal artery stenosis COPD continue home medications Depression/Anxiety continue home medications DVT ppx subq heparin FULL CODE
[2017-04-28] MEDS: CARVEDILOL 3.125 MG TAB PO SCH (20:56)
[2017-04-28] MEDS: ASPIRIN 81 MG ECTAB PO SCH (20:57)
[2017-04-28] MEDS: CITALOPRAM 40 MG TAB PO SCH (20:57)
[2017-04-29 00:42] VITALS: BP 163/86; PULSE 75
[2017-04-29 04:15] VITALS: BP 158/66; PULSE 59; TEMP 36.5; O2SAT 97
[2017-04-29] MEDS: LEVOTHYROXINE 75 MCG TAB PO SCH (06:01)
[2017-04-29] MEDS: HEPARIN SOD 5000 UNIT/0.5 ML CARP SQ SCH (06:01)
[2017-04-29] MEDS: ISOSORBIDE DINITRATE 10 MG TAB PO SCH (07:02)
[2017-04-29 07:21] VITALS: BP 156/71; PULSE 66; TEMP 36.6; O2SAT 97
[2017-04-29] MEDS: LACTOBACILLUS ACIDOPHILUS (FLORANEX) TAB PO SCH (07:55)
[2017-04-29] MEDS: POLYETHYLENE (MIRALAX) 17 GM PACK PO SCH (07:56)
[2017-04-29] MEDS: CARVEDILOL 3.125 MG TAB PO SCH (07:56)
[2017-04-29] MEDS: CEROVITE ADV FORMULA TAB PO SCH (07:56)
[2017-04-29] MEDS ORDERED: AMLODIPINE BESYLATE 5 MG TAB PO SCH (09:00)
--- NOTE | 2017-04-29 09:34 | Progress Note ---
Subjective Date of Service: Apr 29, 2017. Subjective Pt evaluation today including: conversation w/ patient, physical exam, lab review, review of studies, review of inpatient medication list Saw/examined the patient in room 282 Doing better today Eager to go home today; states she has no symptoms Problem List Medical Problems: (1) Chest pain Status: Acute (2) Hypertensive emergency Status: Acute Review of Systems Respiratory: No cough, No sputum, No shortness of breath Cardiac: No chest pain Medications Current Inpatient Medications Medications (Trade) Dose Ordered Sig/Jennifer Route Start Time Stop Time Status Last Admin Dose Admin Tramadol HCl (Ultram Tab) 25 mg Q6H PRN PO 04/27/17 01:45 05/27/17 01:44 Prochlorperazine Edisylate 5 mg/ Syringe 5 ml @ 5 mls/min Q6H PRN IV 04/27/17 01:45 05/27/17 01:44 Isosorbide Dinitrate (Isordil Tab) 10 mg BID@0700,1200 PO 04/27/17 12:00 05/27/17 11:59 04/28/17 12:15 10 MG Ioversol (Optiray 320) 100 ml UD PRN IV 04/27/17 02:15 05/01/17 02:14 Acetaminophen (Tylenol Tab) 650 mg Q4H PRN PO 04/27/17 03:15 05/27/17 03:14 Nitroglycerin (Nitrostat Tab) 0.4 mg UD PRN SL 04/27/17 03:15 05/27/17 03:14 Aspirin (Ecotrin Tab) 81 mg HS PO 04/27/17 21:00 05/27/17 20:59 04/28/17 20:57 81 MG Citalopram Hydrobromide (celeXA TAB) 40 mg QPM PO 04/27/17 21:00 05/27/17 20:59 04/28/17 20:57 40 MG Levothyroxine Sodium (Synthroid Tab) 75 mcg DAILYBB PO 04/27/17 06:30 05/27/17 06:29 04/29/17 06:01 75 MCG Multivitamins/ Minerals (Multivitamin W/ Minerals Tab) 1 tab DAILY PO 04/27/17 09:00 05/27/17 08:59 04/29/17 07:56 1 TAB Zolpidem Tartrate (Ambien Tab) 5 mg HS PRN PO 04/27/17 03:15 05/27/17 03:14 Lactobacillus Acidophilus (Floranex Tab) 4 tab DAILY PO 04/27/17 09:00 05/27/17 08:59 04/29/17 07:55 4 TAB Miscellaneous (Iv Fluids Completed) 1 ea PRN PRN N/A 04/27/17 04:15 04/27/18 04:14 04/28/17 01:38 1 EA Polyethylene (Miralax Powder Packet) 17 gm DAILY PO 04/27/17 09:00 05/27/17 08:59 04/29/17 07:56 17 GM Heparin Sodium (Porcine) (Heparin Sq 5000 Unit/0.5ml) 5,000 unit Q8 SQ 04/27/17 14:00 05/27/17 13:59 04/29/17 06:01 5,000 UNIT Morphine Sulfate (MoRPHine SULFATE INJ) 2 mg Q3H PRN IV 04/27/17 18:15 05/11/17 01:44 Amlodipine Besylate (Norvasc Tab) 10 mg QAM PO 04/29/17 09:00 05/29/17 08:59 04/29/17 07:56 10 MG Carvedilol (Coreg Tab) 3.125 mg BID PO 04/28/17 21:00 05/27/17 20:59 04/29/17 07:56 3.125 MG Objective Vital Signs Date Time Temp Pulse Resp B/P (MAP) Pulse Ox O2 Delivery O2 Flow Rate FiO2 04/29/17 08:00 Room Air 04/29/17 07:21 36.6 66 16 156/71 (99) 97 Room Air 04/29/17 04:15 36.5 59 16 158/66 (96) 97 Room Air 04/29/17 04:00 Room Air 04/29/17 00:42 75 163/86 (111) 04/29/17 00:00 Room Air 04/28/17 23:40 36.7 68 17 182/73 (109) 92 Room Air 64 183/84 (117) 04/28/17 20:00 Room Air 04/28/17 19:20 37.0 70 16 151/65 (93) 95 Room Air 04/28/17 16:00 Room Air 04/28/17 15:31 36.7 62 16 147/75 (99) 94 Room Air 04/28/17 12:00 Room Air 04/28/17 11:39 36.8 69 18 125/67 (86) 97 Room Air Physical Exam General Appearance: no apparent distress, + thin Respiratory/Chest: chest non-tender, lungs clear, normal breath sounds, no respiratory distress, no accessory muscle use Cardiovascular: regular rate, rhythm, no edema, no murmur Abdomen: normal bowel sounds, non tender, soft Extremities: normal inspection, no pedal edema Neurologic/Psychiatric: no motor/sensory deficits, alert, normal mood/affect Assessment and Plan This is an 86 year old female with a PMH of COPD, depression/anxiety, hypothyroidism, HTN, HLD, CKD stage 3 - presents with headache, chest pain and subsequently found to have hypertensive urgency Hypertensive Urgency secondary to Renal Artery Stenosis 04/29 patient is doing better BP stable can d/c on amlodipine, Coreg and Isordil outpatient PCP and cardiology follow-up 04/28 appreciate cardiology input at this point, will continue Coreg and Amlodipine, which is controlled her blood pressure if asymptomatic, can d/c on 04/29 04/27 patient presented with BP >200/100 restarted on Coreg, which was recommended last year now started on Amlodipine echo with moderate LV hypertrophy once BP is controlled, will d/c home head CT and CT for dissection, CT angio of abd/pelvis are all negative besides renal artery stenosis COPD continue home medications Depression/Anxiety continue home medications DVT ppx subq heparin FULL CODE
[2017-04-29] MEDS ORDERED: CRG3125 PO ×2 (09:36→10:55)
[2017-04-29] MEDS ORDERED: ISS/10 PO ×2 (09:36→10:55)
[2017-04-29] MEDS ORDERED: AMLO10TA2 PO ×2 (09:36→10:55)
--- NOTE | 2017-04-29 09:45 | Discharge Instructions ---
Discharge Instructions Date of Service Apr 29, 2017. Admission Reason for Admission: Hypertensive Urgency Discharge Discharge Diagnosis / Problem: Hypertensive Urgency Discharge Goals Goal(s): Decrease discomfort, Improve function, Diagnostic testing, Therapeutic intervention Activity Recommendations Activity Limitations: resume your previous activity . Instructions / Follow-Up Instructions / Follow-Up Please follow-up with Dr. Estrada Johnson on May 03 at 1:55PM * You will be discharged on amlodipine 10mg daily, Coreg 3.125mg twice daily * Your dose of Isosorbide will be increased to 10mg twice a day - take this at 7AM and at noon * Speak to your primary care doctor about possibly adding on another medication for depression/anxiety Current Hospital Diet Patient's current hospital diet: AHA Diet (Heart Healthy) Discharge Diet Recommended Diet: AHA Diet (Heart Healthy) Pending Studies Studies pending at discharge: no Medical Emergencies . Who to Call and When: Medical Emergencies: If at any time you feel your situation is an emergency, please call 911 immediately. . Non-Emergent Contact Non-Emergency issues call your: Primary Care Provider, Film Booker . . "Provider Documentation" section prepared by Buddy Del Valle. . VTE Core Measure Inpt VTE Proph given/why not?: Unfractionated heparin SQ
--- NOTE | 2017-04-29 09:47 | Discharge Summary ---
Discharge Summary Date of Service Apr 29, 2017. Discharge Summary Admission Date: Apr 28, 2017 at 13:14 Discharge Date: Apr 29, 2017 Discharge Disposition: Home Principal Diagnosis: Hypertensive Urgency L Renal Artery Stenosis Depression/Anxiety Medication Reconciliation New Medications: Amlodipine Besylate (Norvasc) 10 Mg Tab 1 TAB PO DAILY for 30 Days, #30 TAB 5 Refills Carvedilol (Carvedilol) 3.125 Mg Tab 3.125 MG PO BID for 30 Days, #60 TAB Changed Medications: Isosorbide Dinitrate (Isordil) 10 Mg Tab 10 MG PO BID for 30 Days, #60 TAB (Changed from: 5 MG) Continued Medications: Albuterol Hfa (Ventolin Hfa) 200 Puffs/79559 Mcg Aers 2 PUFFS INH Q6H PRN for SOB/Wheezing, #1 INHALER Aspirin (Aspirin Adult Low Strengt) 81 Mg Chw 81 MG PO HS Calcium W/ Vitamins D & K (Calcium + D + K) 1 Tab Tab 750 MG PO DAILY Citalopram (Citalopram Hydrobromide) 40 Mg Tab 40 MG PO QPM Cranberry (Vaccinium Macrocarp (Cranberry) 500 Mg Cap 500 MG PO BID Lactobacillus-Inulin (Culturelle) 1 Cap Cap 1 CAP PO DAILY Levothyroxine Sodium (Levothyroxine Sodium) 75 Mcg Tab 75 MCG PO DAILY Multiple Vitamins W/ Minerals (Ocuvite) 1 Tab Tab 1 TABS PO DAILY Zolpidem Tartrate (Zolpidem Tartrate) 5 Mg Tab 5 MG PO HS PRN for Sleep Admission Information HPI (per Admitting provider): DATE OF ADMISSION: 04/27/2017 PRIMARY CARE DOCTOR: Dr. Johnson. CHIEF COMPLAINT: Dizziness. HISTORY OF PRESENT ILLNESS: History obtained from patient and records. Medical history significant for hypertension, COPD as per records, PVD, nonocclusive CAD as per records, chronic left bundle branch block, macular degeneration, mood disorder. Recent confinement in 2013 for hypertensive urgency. Yesterday afternoon, the patient noted dizziness described as lightheadedness, feeling imbalanced. No headache. blurred vision more than usual. Recent denies headache. Does not check blood pressure at home. Patient compliant with meds. Denies dietary indiscretion. Patient brought to the Emergency Room. At the Emergency Room, blood pressure noted to be 228/103. Upon return from CT, the patient noted bilateral subcostal pain, pleuritic, going to her belly and her back with some shortness of breath. No unusual cough symptoms. Patient had some relief of discomfort with aspirin and nitroglycerin. SBP currently 200s. Currently dizziness, imbalance symptoms resolve MEDICAL HISTORY: As above. In January of 2016, the patient's Coreg discontinued by [facility] due to patient's fatigue concerns. No change in fatigue symptoms despite stopping Coreg on followup a month later as per outpatient notes. Amlodipine subsequently discontinued. Nuclear stress test normal in February 2014, EF was 66%. SURGERIES: She has had bunion surgery, cataract surgery, and hysterectomy. HOME MEDICATIONS: Include albuterol, aspirin, calcium plus D, citalopram, isosorbide dinitrate 10 mg twice daily, levothyroxine, MiraLax, and probiotic. ALLERGIES: MACROBID, GABAPENTIN, TOPAMAX, METOPROLOL, SULFA, AND DEVORAH INHIBITORS. FAMILY HISTORY: Rheumatoid arthritis, stroke, lymphoma, and diabetes. PERSONAL AND SOCIAL HISTORY: Nonsmoker. No chronic intake of alcoholic beverages. Retired business intelligence administrator. REVIEW OF SYSTEMS: As per HPI, all 10 systems reviewed, all others negative. PHYSICAL EXAMINATION: VITAL SIGNS: Blood pressure was noted to be 228/103, later 207/86, pulse rate 66, RR 17, temperature 36.6, and sats 95 on room air. GENERAL: Noted to be slightly anxious, hyposthenic. No respiratory distress. Uncomfortable. SKIN: Normal color, warm. HEENT: [place] palpebral conjunctivae. No ptosis. , ecchymosis on the left mentum (secondary to recent dental procedure last week). NECK: Supple, nontender. CHEST: Clear to auscultation. No tenderness. HEART: Regular rate and rhythm. Palpable LE pulses. ABDOMEN: Soft, nontender. EXTREMITIES: No edema. No gross deformities. No tenderness NEUROLOGIC: Coherent. No gross focality. LABORATORY DATA: Hemoglobin was noted to be 14, Sodium 137, potassium 3.7, chloride 101, CO2 of 30, BUN 20, creatinine 0.9, glucose 94. LFTs, lipase normal. trop negative CT head, no acute pathology. CT aortic dissection study negative for aortic dissection or PE on initial read. EKG as per my interpretation, rate 65, normal sinus rhythm, LAD, LAFB, IVCD. ASSESSMENT: 1. Chest pain, dizziness likely secondary to hypertensive urgency. 2. Nonocclusive coronary artery disease/PVD as per records. 3. hx Chronic obstructive pulmonary disease, pulmonary status baseline. 4. Mood disorder as per records. 5. Chronic left bundle branch block. PLAN: Observation PCU. Patient agreeable to resuming previous home Coreg Rx TTE cp Cardio consult. RE hypertensive urgency (Patient known to G.) DVT prophylaxis, Lovenox subQ. Full code. Hospital Course This is an 86 year old female with a PMH of COPD, depression/anxiety, hypothyroidism, HTN, HLD, CKD stage 3 - presents with headache, chest pain and subsequently found to have hypertensive urgency Hypertensive Urgency secondary to Renal Artery Stenosis 04/29 patient is doing better BP stable can d/c on amlodipine, Coreg and Isordil outpatient PCP and cardiology follow-up 04/28 appreciate cardiology input at this point, will continue Coreg and Amlodipine, which is controlled her blood pressure if asymptomatic, can d/c on 04/29 04/27 patient presented with BP >200/100 restarted on Coreg, which was recommended last year now started on Amlodipine echo with moderate LV hypertrophy once BP is controlled, will d/c home head CT and CT for dissection, CT angio of abd/pelvis are all negative besides renal artery stenosis COPD continue home medications Depression/Anxiety continue home medications DVT ppx subq heparin FULL CODE Total time spent on discharge = 40 minutes This includes examination of the patient, discharge planning, medication reconciliation, and communication with other providers. Discharge Instructions Please follow-up with Dr. Estrada Johnson on May 03 at 1:55PM * You will be discharged on amlodipine 10mg daily, Coreg 3.125mg twice daily * Your dose of Isosorbide will be increased to 10mg twice a day - take this at 7AM and at noon * Speak to your primary care doctor about possibly adding on another medication for depression/anxiety
[2017-04-29 09:55] VITALS: BP 156/71; PULSE 66; TEMP 36.6; O2SAT 97
== END 2017-04-29 11:14 | disposition home or self-care (01) | DRG 305 ==
LOC: C.EDB 19:35 → C.MED 04-27 01:14 → ENRESERV 04-27 03:19 → OBSVTOIN 04-28 13:14
PROVIDERS: ADMIT Internal Medicine; ATTEND Family Medicine
DX: I16.0 Hypertensive urgency (principal); I12.9 Hypertensive chronic kidney disease with stage 1 through stage 4 chronic kidney disease, or unspecified chronic kidney disease; N18.3 Chronic kidney disease, stage 3 (moderate); I70.1 Atherosclerosis of renal artery; E03.9 Hypothyroidism, unspecified; I25.10 Atherosclerotic heart disease of native coronary artery without angina pectoris; I44.7 Left bundle-branch block, unspecified; I73.9 Peripheral vascular disease, unspecified; H35.30 Unspecified macular degeneration; F32.9 Major depressive disorder, single episode, unspecified; F41.9 Anxiety disorder, unspecified; Z79.82 Long term (current) use of aspirin; Z79.899 Other long term (current) drug therapy; Z88.2 Allergy status to sulfonamides; Z88.8 Allergy status to other drugs, medicaments and biological substances